=== PATIENT | male | born 2000 | race Caucasian/White ===

== ENCOUNTER 2023-03-12 07:25 | Outpatient (CLI) | payer OTHER, SELFPAY ==
--- NOTE | 2023-03-12 07:29 | USCV_ITS ---
Bernardino Harden Age: 22 Gender: M : 2000 Exam Date: 03/12/2023 07:42 Ordering Phys: Clarita Charu BRYANT Technologist: THONY [place] [facility] [place]: [place] BP: 123 / 67 HR: 55 Rhythm: Sinus Technical Quality: Adequate MEASUREMENTS (Male / Female) Normal Values 2D ECHO LVOT Diameter 2.0 cm LV Ejection Fraction MOD 2C 56.3 % LV Ejection Fraction 2C AL 55.5 % LA Diameter 2.8 cm LA Width 3.2 cm LA Height 4.3 cm RA Width 3.9 cm RA Height 4.3 cm Aorta at Sinotubular Diameter 2.1 cm IVC Diameter 1.3 cm M-MODE Aortic Annulus Diameter 2.4 cm LA Ao Ratio MM 1.2 MV E Point Septal Separation 0.4 cm DOPPLER AV Peak Velocity 124.0 cm/s LVOT Peak Velocity 116.0 cm/s AV Area Cont Eq vti 3.2 cm squared AV Area Cont Eq pk 2.9 cm squared MV Peak Velocity 92.0 cm/s MV Area PHT 4.1 cm squared Mitral E to A Ratio 2.2 MV E' Velocity 52.5 cm/s Mitral E to MV E' Ratio 5.2 Mitral E to LV E' Lateral Ratio 4.1 Mitral E to LV E' Septal Ratio 7.0 TR Peak Velocity 170.0 cm/s TR Peak Gradient 11.6 mmHg Right Atrial Pressure 3.0 mmHg Pulmonary Artery Systolic Pressu 14.6 mmHg PV Peak Velocity 127.0 cm/s RV Acceleration Time 0.1 s RV Ejection Time 0.3 s RV AcT/ET 0.5 FINDINGS Left Ventricle Left ventricle is normal in size. LV systolic function is normal with EF of 55 to 60%. No regional wall motion abnormalities are seen. Right Ventricle Normal in size and function Right Atrium Normal in size Left Atrium Normal in size Mitral Valve Structurally normal mitral valve. Trace mitral regurgitation Aortic Valve Structurally normal aortic valve. No significant stenosis or regurgitation. Tricuspid Valve Mild tricuspid regurgitation. Insufficient TR jet to assess RVSP. Pulmonic Valve Not well-visualized Pericardium Normal Aorta Normal in size IVC Appears to be normal CONCLUSIONS LV systolic function is normal with EF 55 to 60%. Mild tricuspid regurgitation Trace mitral regurgitation No comparison studies are available Sj Perez MD (Electronically Signed) Final Date: 28 March 2023 14:36 S
== END 2023-03-12 07:26 | disposition home or self-care (01) ==
LOC: RAD 07:26
PROVIDERS: Family Provider Family Medicine; Visit Provider Nurse Practitioner Family
DX: R55 Syncope and collapse (principal); I07.1 Rheumatic tricuspid insufficiency
CPT/HCPCS: 93306